=== PATIENT | male | born 1960 | race Caucasian/White ===

== ENCOUNTER 2018-11-06 12:01 | Emergency (ER) | payer SELFPAY ==
[~2018-11-06] VITALS: Ht 175.3 cm; Wt 90.7 kg
--- NOTE | 2018-11-06 12:01 | NUR ---
ED Nurse Note: LQ=[id number] per EMS report pt doesn't take any meds for psych hx per EMS report.
--- NOTE | 2018-11-06 12:01 | NUR ---
ED Nurse Note: pt homeless discharge paperwork started and initiated, pt unable to stay awake more than 3 sec to repeat words back or understand, will try again.
[2018-11-06 12:09] VITALS: BP 118/80
--- NOTE | 2018-11-06 12:12 | NUR ---
ED Nurse Note: noted twitching of arms. PA aware.
--- NOTE | 2018-11-06 12:12 | NUR ---
ED Nurse Note: pt brought in by EMS, per EMS report pt was found on side walk sleeping, c/o weakness and fatigue. Pt states he hasn't been sleeping and he just needs to sleep. Noted pt lethargic, unable to stay awake more than 3 seconds. PT AA&ox3, gcs=12, resp even and unlabored, airway patent, skin warm and dry, pt unkempt, ambulate w/ minimal assist to bed. PA notified regarding pt's condition.
[2018-11-06 12:49] LABS: BASOPHILS % (AUTO) 0.9 % (0.0-2.0); EOSINOPHILS % (AUTO) 0.8 % (0.0-3.0); HEMATOCRIT 41.1 % (42.0-52.0); MEAN CORPUSCULAR VOLUME 86 FL (80-99); MONOCYTES % (AUTO) 5.3 % (1.0-10.0); NEUTROPHILS % (AUTO) 79.1 % (45.0-75.0); PLATELET COUNT 242 K/UL (150-450); RED BLOOD COUNT 4.76 M/UL (4.70-6.10); RED CELL DISTRIBUTION WIDTH 12.9 % (11.6-14.8); WHITE BLOOD COUNT 8.9 K/UL (4.8-10.8)
--- NOTE | 2018-11-06 13:00 | NUR ---
ED Nurse Note: pt still unable to stay awake more than 3 seconds, pt confused, PA aware. Attempted reorienting pt. VSS.
[2018-11-06 13:03] LABS: ANION GAP 7 mmol/L (5-15); BLOOD UREA NITROGEN 17 mg/dL (7-18); CALCIUM 9.1 MG/DL (8.5-10.1); CARBON DIOXIDE 27 MMOL/L (21-32); CHLORIDE 105 MMOL/L (98-107); CREATININE 0.9 MG/DL (0.55-1.30); POTASSIUM 3.6 MMOL/L (3.5-5.1); SODIUM 139 MMOL/L (136-145)
[2018-11-06 13:08] VITALS: BP 120/80
[2018-11-06 13:11] LABS: ALANINE AMINOTRANSFERASE 52 U/L (12-78); ALBUMIN 3.6 G/DL (3.4-5.0); ALBUMIN/GLOBULIN RATIO 0.8 (1.0-2.7); ALKALINE PHOSPHATASE 72 U/L (46-116); ASPARTATE AMINO TRANSFERASE 30 U/L (15-37); BILIRUBIN,TOTAL 0.6 MG/DL (0.2-1.0)
[2018-11-06] MEDS ORDERED: Vancomycin 1.5gm/D5W 250ml 250 ML IVPB ONE (14:15)
--- NOTE | 2018-11-06 15:20 | Emergency Room Report ---
History of Present Illness General Chief Complaint: Generalized Weakness Source: EMS Present Illness HPI 57-year-old male presents to the emergency department complaining of weakness fatigue. EMS patient was found sleeping on the sidewalk and a very aff[place] area. Patient states he has a psychiatric history however he states he is not currently taking any medications. Patient denies medical problems. Patient is a poor historian and therefore history of present illness and ROS are limited due to patient being extremely lethargic and reluctant to answer most questions with detail. Pt. denies pain. Allergies: Coded Allergies: No Known Allergies (Unverified , 11/06/18) Patient History Past Medical History: see triage record, psych hx - schizophrenia and bipolar Past Surgical History: unable to obtain Pertinent Family History: unable to obtain Reviewed Nursing Documentation: PMH: Agreed; PSxH: Agreed Review of Systems All Other Systems: limited - Pt. very sleepy/ not willing to provide much detail= poor pt. cooperation. Physical Exam Vital Signs Date Time Temp Pulse Resp B/P (MAP) Pulse Ox O2 Delivery O2 Flow Rate FiO2 11/06/18 11:57 98.1 80 18 118/80 97 Room Air Sp02 EP Interpretation: reviewed, normal General Appearance: no apparent distress, alert, GCS 15, non-toxic Head: normocephalic, atraumatic Eyes: bilateral eye normal inspection, bilateral eye PERRL ENT: hearing grossly normal, normal voice Neck: full range of motion Respiratory: chest non-tender, lungs clear, normal breath sounds, speaking full sentences Cardiovascular #1: regular rate, rhythm, no edema Gastrointestinal: normal bowel sounds, non tender, soft Rectal: deferred Genitourinary: normal inspection Musculoskeletal: back normal, gait/station normal, normal range of motion, non- tender Neurologic: alert, oriented x3, responsive, motor strength/tone normal, sensory intact, speech normal, grossly normal Psychiatric: judgement/insight normal Skin: normal color, no rash, warm/dry, well hydrated Lymphatic: no adenopathy Medical Decision Making PA Attestation Dr. Lama is my supervising Physician whom patient management has been discussed with. Diagnostic Impression: Primary Impression: Episode of generalized weakness ER Course 57-year-old male presents to the emergency department complaining of weakness fatigue. EMS patient was found sleeping on the sidewalk and a very affluent area. Patient states he has a psychiatric history however he states he is not currently taking any medications. Patient denies medical problems. Patient is a poor historian and therefore history of present illness and ROS are limited due to patient being extremely lethargic and reluctant to answer most questions with detail. Pt has flat affect. non-aggressive, normal though process, and normal memory. Ddx considered but are not limited to OD, SI/HI, psychosis, UTI, intoxication Vital signs: are WNL, pt. is afebrile H&PE are most consistent with behavioral/mental health issue vs intoxication will do labs and imaging. evidence of vomitus in pt. mouth during PE. ORDERS: -CBC, CMP: Unremarkable -UA: negative for infection/ unremarkable see results attached. -UDS: Negative -Salicylates and Acetaminophen -WNL -Serum ETOH - No evidence of acute intoxication ED INTERVENTIONS: -Zofran IM --- pt. had episode of vomiting during ED visit. DISPOSITION:Patient is signed out to on-coming ED physician Dr. Velasco. Labs Test 11/06/18 12:35 11/06/18 15:57 White Blood Count 8.9 K/UL (4.8-10.8) Red Blood Count 4.76 M/UL (4.70-6.10) Hemoglobin 14.0 G/DL (14.2-18.0) Hematocrit 41.1 % (42.0-52.0) Mean Corpuscular Volume 86 FL (80-99) Mean Corpuscular Hemoglobin 29.5 PG (27.0-31.0) Mean Corpuscular Hemoglobin Concent 34.2 G/DL (32.0-36.0) Red Cell Distribution Width 12.9 % (11.6-14.8) Platelet Count 242 K/UL (150-450) Mean Platelet Volume 6.3 FL (6.5-10.1) Neutrophils (%) (Auto) 79.1 % (45.0-75.0) Lymphocytes (%) (Auto) 14.0 % (20.0-45.0) Monocytes (%) (Auto) 5.3 % (1.0-10.0) Eosinophils (%) (Auto) 0.8 % (0.0-3.0) Basophils (%) (Auto) 0.9 % (0.0-2.0) Sodium Level 139 MMOL/L (136-145) Potassium Level 3.6 MMOL/L (3.5-5.1) Chloride Level 105 MMOL/L (98-107) Carbon Dioxide Level 27 MMOL/L (21-32) Anion Gap 7 mmol/L (5-15) Blood Urea Nitrogen 17 mg/dL (7-18) Creatinine 0.9 MG/DL (0.55-1.30) Estimat Glomerular Filtration Rate > 60 mL/min (>60) Glucose Level 134 MG/DL (74-106) Calcium Level 9.1 MG/DL (8.5-10.1) Total Bilirubin 0.6 MG/DL (0.2-1.0) Aspartate Amino Transf (AST/SGOT) 30 U/L (15-37) Alanine Aminotransferase (ALT/SGPT) 52 U/L (12-78) Alkaline Phosphatase 72 U/L (46-116) Total Protein 8.0 G/DL (6.4-8.2) Albumin 3.6 G/DL (3.4-5.0) Globulin 4.4 g/dL Albumin/Globulin Ratio 0.8 (1.0-2.7) Salicylates Level 4.8 ug/mL (2.8-20) Acetaminophen Level < 2 MCG/ML (10-30) Serum Alcohol < 3 mg/dL Urine Opiates Screen Positive (NEGATIVE) Urine Barbiturates Screen Negative (NEGATIVE) Phencyclidine (PCP) Screen Negative (NEGATIVE) Urine Amphetamines Screen Negative (NEGATIVE) Urine Benzodiazepines Screen Negative (NEGATIVE) Urine Cocaine Screen Negative (NEGATIVE) Urine Marijuana (THC) Screen Positive (NEGATIVE) EKG Diagnostic Results EP Interpretation: Dr. Lama Rate: normal - 92 bpm Rhythm: NSR ST Segments: no acute changes Other Impression prolonged QT interval 492 ASA given to the pt in ED: No PA Scribe Text This Interpretation was scribed by NEIL Ventura. Chest X-Ray Diagnostic Results Chest X-Ray Diagnostic Results : Chest X-Ray Ordered: Yes # of Views/Limited/Complete: 1 View Indication: Shortness of Breath EP Interpretation: Yes PA Xray: Interpretation reviewed, by supervising MD, and agrees with findings. Interpretation: no consolidation, no effusion, no pneumothorax, no acute cardiopulmonary disease Impression: No acute disease Electronically Signed by: Chelsey Ventura PA-C CT/MRI/US Diagnostic Results CT/MRI/US Diagnostic Results : Imaging Test Ordered: CT Head No Contrast Impression "No evidence of acute intracranial hemorrhage or significant mass effect or midline shift. There was cerebral atrophy noted and suggestive evidence of an old small lacunar infarct. "---Per official radiology report- Please see report for specific details. Last Vital Signs Date Time Temp Pulse Resp B/P (MAP) Pulse Ox O2 Delivery O2 Flow Rate FiO2 11/06/18 12:09 80 18 Room Air 11/06/18 12:09 98.1 118/80 97 Signed Out To: Dr. Velasco Referrals: NOT CHOSEN [facility]/,REFERRING (PCP) Chelsey Ventura Nov 06, 2018 15:20
--- NOTE | 2018-11-06 15:55 | NUR ---
ED Nurse Note: pt on aspiration precaution, hob elevated above 45.
--- NOTE | 2018-11-06 15:55 | NUR ---
ED Nurse Note: PA notified regarding pt's condition, pt vomiting, pt states he took heroin prior to coming to ER.
--- NOTE | 2018-11-06 15:57 | NUR ---
ED Nurse Note: pt states he is IV drug user and used heroin today, pt unable to stay awake for more than 10 sec, PA aware.
--- NOTE | 2018-11-06 16:00 | NUR ---
ED Nurse Note: pt cleaned and changed, repositioned.
--- NOTE | 2018-11-06 16:15 | NUR ---
ED Nurse Note: per PA order, d/c vancomycin.
--- NOTE | 2018-11-06 16:16 | Diagnostic Imaging Report ---
Indication: Dyspnea Comparison: None A single view chest radiograph was obtained. Findings: Heart size is normal. There is a questionable infiltrate in the left midlung. Follow-up recommended. Clinical correlation recommended. Bones are unremarkable. IMPRESSION: Question of a left pulmonary infiltrate mild in degree. Correlate clinically. Follow-up suggested
[2018-11-06 16:26] VITALS: BP 153/68
[2018-11-06 18:25] VITALS: BP 156/68
--- NOTE | 2018-11-06 19:10 | NUR ---
HAND-OFF: REPORT GIVEN TO OG TAMAYO.
--- NOTE | 2018-11-06 23:53 | NUR ---
ED Nurse Note: found iv on the ground, found bottle containing possible marijuana and manager licensing next to pt, pt attempted opening the bottle. ERMD notified.
[2018-11-07] VITALS: BP 148/68
--- NOTE | 2018-11-07 | NUR ---
ED Nurse Note: pt refused to do mini cog.
--- NOTE | 2018-11-07 | NUR ---
ED Nurse Note: pt's discharge instruction provided w/ prescription, pt given new pants and socks, sandwich and juice, pt's all belongings sent with pt, pt verbalized understanding regarding discharge instruction but refused to sign discharge paperwork, charge nursed notified, pt education done via handout and discussion prior to departure, pt states he wants to go outside and smoke marijuana, pt notified discharge paperwork can be used for bus, pt states he wants to take bus and go his home.
--- NOTE | 2018-11-07 | NUR ---
ED Nurse Note: pt AA&ox4, gcs=15, ambulates w/ steady gait.
--- NOTE | 2018-11-07 09:15 | Diagnostic Imaging Report ---
Indications: Altered mental status, alcohol abuse Technique: Spiral acquisitions obtained through the brain. Angled axial and coronal 5 x 5 mm slices were reconstructed. Total dose length product 1629.44 mGycm. CTDI vol(s) 70.38 mGy. Dose reduction achieved using automated exposure control Comparison: None. Findings: There is prominence to the extra axial CSF spaces consistent with cortical volume loss, out of proportion for age. Questionable old small left basal ganglia lacunar infarct versus prominent perivascular space No acute intracranial hemorrhage nor edema. No mass effect or midline shift. Normal rojas-white differentiation. Intact calvarium. There is ethmoid sinus disease bilaterally. The mastoids are clear. The orbits are unremarkable. Impression: Cerebral cortical volume loss, advanced for age Negative for acute intracranial bleed or mass effect This agrees with the preliminary interpretation provided overnight by [facility] telerad[facility] service. The CT scanner at [facility] is accredited by the [employer] and the scans are performed using protocols designed to limit radiation exposure to as low as reasonably achievable to attain images of sufficient resolution adequate for diagnostic evaluation.
--- NOTE | 2018-11-07 16:34 | Cardiology Report ---
APPROVED REPORT EKG Measurement Heart [id number] Normal sinus rhythm Prolonged QT Abnormal ECG
[2018-11-08] MEDS ORDERED: LEVAQUIN750 MG ORAL (11:18)
== END 2018-11-07 | disposition home or self-care (01) ==
LOC: EDBD 12:01 → EMR 14:27
DX: R53.1 Weakness (principal); F20.9 Schizophrenia, unspecified; F31.9 Bipolar disorder, unspecified; F17.200 Nicotine dependence, unspecified, uncomplicated; Z59.0 Homelessness
CPT/HCPCS: 36415; 70450; 71045; 80053; 80307; 85025; 93005; 96360; 96372; 99284; G0480; J2405; J3370; 80329

== ENCOUNTER 2018-11-08 07:40 | Emergency (ER) | payer MEDICAID ==
[~2018-11-08] VITALS: Ht 177.8 cm; Wt 81.6 kg
[2018-11-08 07:49] VITALS: BP 126/93
--- NOTE | 2018-11-08 08:12 | NUR ---
ED Nurse Note: PT. AAOX4. AMBULATORY. CAME IN TO ER DUE TO PAIN NOTED ON THE L RIB CAGE. PT REPORTED THAT HE WAS LIFTING CHAINSAW AND IT FELL HEAVY AND STARTED HAVING PAIN ON THE L RIB CAGE AREA. NO WOUNDS NOTED. NO REDNESS.
--- NOTE | 2018-11-08 09:47 | NUR ---
ED Nurse Note: XRAY AT BEDSIDE
[2018-11-08 10:54] VITALS: BP 124/76
[2018-11-08 11:16] VITALS: BP 147/88
[2018-11-08] MEDS ORDERED: LEVAQUIN750 MG ORAL (11:18)
--- NOTE | 2018-11-08 12:08 | NUR ---
ED Nurse Note: report given to Vickie FOLEY
--- NOTE | 2018-11-08 12:25 | NUR ---
ED Nurse Note: Prescription and demographics faxed to [facility].
--- NOTE | 2018-11-08 12:45 | Diagnostic Imaging Report ---
Indication: Chest pain Technique: One view of the chest Comparison: 11/06/2018 Findings: Parenchymal opacities at the left lung base are stable. The left costophrenic angle is increasingly obscured. The left upper lung, right lung and pleural space are clear. Impression: Possible left basilar infiltrate, unchanged over 2 days Suggestion of new or increasing left-sided pleural effusion
--- NOTE | 2018-11-08 13:45 | NUR ---
ED Nurse Note: pt discharge instruction provided with medications for 7 days worth, pt medication was picked up by central services tech and delievered to pt, pt education done via discussion and handout, pt advised to follow up w/ pcp 2-3days, pt verbalized understanding and agrees with plan, pt wrist band removed, pt ambulatory w/ steady gait, vss, all belongings left w/ pt, iv d/c pt tolerated well, dressing applied and intact. pt homeless d/c paperwork done, pt notified dc paperwork used as bus pass, pt declines where he will go but states he will take bus to go back to where he is at and meet his girlfriend. pt given new shirt and sandwich with water. pt given list of shelters and clinic.
[2018-11-08 13:55] VITALS: BP 140/88
--- NOTE | 2018-11-09 07:42 | Emergency Room Report ---
History of Present Illness General Chief Complaint: Multiple Trauma/Fall Source: Patient Present Illness HPI Patient presents with complaints of discomfort to the left lower chest area he reports previous cough and congestion Reports that he is homeless and secondary to the cold weather he feels like he caught a cold Increased cough Denies any shortness of breath There was a report at triage regarding a chain saw falling on the left side of his chest however I did not receive this history Patient denies any vomiting denies any diarrhea denies any abdominal pain he did have a mild runny nose Patient is homeless appears somewhat disheveled Initially required several attempts to arousal in order to obtain history however after prolonged Rest patient was more awake and reports that he feels better Allergies: Coded Allergies: No Known Allergies (Unverified , 11/06/18) Patient History Past Medical History: see triage record Pertinent Family History: none Reviewed Nursing Documentation: PMH: Agreed; PSxH: Agreed Nursing Documentation-PM Past Medical History: No History, Except For Hx Gastrointestinal Problems: Yes - Hepatitis C Review of Systems All Other Systems: negative except mentioned in HPI Physical Exam Vital Signs Date Time Temp Pulse Resp B/P (MAP) Pulse Ox O2 Delivery O2 Flow Rate FiO2 11/08/18 07:49 97.3 88 16 126/93 94 Room Air Sp02 EP Interpretation: reviewed, normal General Appearance: well appearing - For mildly disheveled Head: normocephalic, atraumatic Eyes: bilateral eye PERRL, bilateral eye EOMI ENT: hearing grossly normal, normal pharynx Neck: supple Respiratory: no respiratory distress, no retraction, no accessory muscle use, crackles - left Lower lobe Cardiovascular #1: regular rate, rhythm, no edema Gastrointestinal: soft, no mass Musculoskeletal: normal inspection Neurologic: alert, oriented x3, responsive Skin: normal color - Somewhat disheveled however no obvious ecchymosis or bruising specifically on the chest area,, no rash Lymphatic: no adenopathy Medical Decision Making Diagnostic Impression: Primary Impression: pneumonia ER Course Patient appears to have had an x-ray recently given the complaint repeat imaging was obtained It appears fairly similar to previous the left lower lobe does show a questionable concern of developing infiltrate Consideration for hemothorax is also made given the remote questionable history of trauma Patient otherwise remains awake and alert at this time was provided with initial Antibiotic for possible community-acquired pneumonia Patient continues to rest We did obtain further medications as the patient is homeless and I felt would likely have a poor disposition on his own attempted to obtain medication We also contacted social work however while waiting patient reports that he would like to take the bus And does not want to wait any longer and was dispositioned for close outpatient follow-up Chest X-Ray Diagnostic Results Chest X-Ray Diagnostic Results : Chest X-Ray Ordered: Yes # of Views/Limited/Complete: 1 View Indication: Chest Pain EP Interpretation: Yes Interpretation: no pneumothorax, other - Markings and haziness left lower lobe question effusion versus small early infiltrate Impression: Other - Left lower lobe increased markings Electronically Signed by: Radha Summers DO Last Vital Signs Date Time Temp Pulse Resp B/P (MAP) Pulse Ox O2 Delivery O2 Flow Rate FiO2 11/08/18 13:55 97.7 80 16 140/88 98 Room Air Status: improved Disposition: HOME, SELF-CARE Condition: Improved Scripts Levofloxacin* (LEVAQUIN*) 750 Mg Tablet 750 MG ORAL DAILY for 7 Days, TAB Prov: Radha Summers DO 11/08/18 Referrals: NOT CHOSEN IPA/MD,REFERRING (PCP) Patient Instructions: Community-Acquired Pneumonia, Adult Additional Instructions: Patient is provided with the discharge instructions notified to follow up with primary doctor in the next 2-3 days otherwise return to the er with any worsening symptoms. Please note that this report is being documented using [employer] technology. This can lead to erroneous entry secondary to incorrect interpretation by the dictating instrument. Radha Summers DO Nov 09, 2018 07:42
== END 2018-11-08 13:55 | disposition home or self-care (01) ==
LOC: EMR 08:18
DX: J18.9 Pneumonia, unspecified organism (principal)
CPT/HCPCS: 71045; 96365; 99284; J1956